=== PATIENT | female | born 1975 | race Caucasian/White ===

== ENCOUNTER 2019-06-26 11:07 | Emergency (ER) | payer BC ==
[~2019-06-26] VITALS: Ht 162.6 cm; Wt 58.4 kg
[~2019-06-26 11:07] MED LIST: BUTA1CAP38 PO; MECL-77 PO; ONDA4TAB14 PO
[2019-06-26 11:11] VITALS: BP 167/70; PULSE 64; RESP 18; Ht 162.6 cm; Wt 58.4 kg
== END 2019-06-26 14:00 | disposition home or self-care (01) ==
LOC: FTE 11:07
DX: G43.909 Migraine, unspecified, not intractable, without status migrainosus (principal); E03.9 Hypothyroidism, unspecified
CPT/HCPCS: 93005; 99283